=== PATIENT | male | born 1995 | race American Indian/Alaskan Native ===

== ENCOUNTER 2018-12-19 23:40 | Emergency (ER) | payer OTHER ==
[2018-12-19 23:56] VITALS: BP 167/84; PULSE 94; RESP 16; TEMP 98.8; O2SAT 97
[2018-12-20] MEDS ORDERED: Absorbable Gelatin Sponge Size 12-7 TP ONE (00:43)
[2018-12-20] MEDS ORDERED: Tdap Vaccine 0.5 ml Vial (10-64 yrs) IM ONE ×2 (00:45→01:09)
--- NOTE | 2018-12-20 00:46 | ED PDOC ---
HPI: General Adult Time Seen by Provider: 12/20/18 00:44 Chief Complaint (Nursing): Abnormal Skin Integrity Chief Complaint (Provider): left hand injury History Per: Patient (22 y/o male here for injury to left hand index finger that occurred at 3:30pm when he injured tip of finger with rubber mallet. Unsure of tetanus status. Sent by mother for evaluation of injury as it is persistently bleeding.) Past Medical History Reviewed: Historical Data, Nursing Documentation, Vital Signs Vital Signs: Last Vital Signs Temp 98.8 F 12/19/18 23:54 Pulse 94 H 12/19/18 23:54 Resp 16 12/19/18 23:54 BP 167/84 H 12/19/18 23:54 Pulse Ox 97 12/19/18 23:54 - Family History Family History: States: No Known Family Hx - Home Medications Home Medications: Ambulatory Orders Medication Instructions Recorded Cephalexin [Keflex] 500 mg PO TID #15 capsule 12/20/18 - Allergies Allergies/Adverse Reactions: Allergies Allergy/AdvReac Type Severity Reaction Status Date / Time shellfish derived Allergy ANGIOEDEMA Verified 12/19/18 23:54 Review of Systems ROS Statement: Except As Marked, All Systems Reviewed And Found Negative Physical Exam - Reviewed Nursing Documentation Reviewed: Yes Vital Signs Reviewed: Yes - Physical Exam Appears: Positive for: Well, Non-toxic, No Acute Distress Head Exam: Positive for: ATRAUMATIC, NORMAL INSPECTION, NORMOCEPHALIC Skin: Positive for: Normal Color, Warm, DRY Eye Exam: Positive for: EOMI, Normal appearance, PERRL ENT: Positive for: Normal ENT Inspection Neck: Positive for: Normal, Painless ROM Cardiovascular/Chest: Positive for: Regular Rate, Rhythm Respiratory: Positive for: CNT, Normal Breath Sounds Gastrointestinal/Abdominal: Positive for: Normal Exam, Soft Back: Positive for: Normal Inspection Extremity: Positive for: Normal ROM, Other (1.0 cm skin avulsion noted distal tip of left index finger) Neurological/Psych: Positive for: Awake, Alert, Normal Tone - ECG O2 Sat by Pulse Oximetry: 97 - Progress ED Course And Treament: verbal consent prior to procedure gelfoam applied to wound tdap 0.5 ml IM x 1 dose Disposition - Clinical Impression Clinical Impression: Fingertip avulsion - Patient ED Disposition Is Patient to be Admitted: No - Disposition Referrals: Jude Suh MD [Primary Care Provider] - Disposition: Routine/Home Disposition Time: 00:46 Condition: FAIR Additional Instructions: RETURN IN 24-48 HOURS FOR WOUND CHECK Prescriptions: Cephalexin [Keflex] 500 mg PO TID #15 capsule Instructions: Amputation of the Finger or Fingertip (DC)
[2018-12-20] MEDS ORDERED: Absorbable Gelatin Sponge Size 12-7 ONE (00:48)
== END 2018-12-20 01:18 | disposition home or self-care (01) ==
LOC: H.ER 23:40
DX: S61.201A Unspecified open wound of left index finger without damage to nail, initial encounter (principal); W23.0XXA Caught, crushed, jammed, or pinched between moving objects, initial encounter; Y92.89 Other specified places as the place of occurrence of the external cause

== ENCOUNTER 2018-12-21 11:50 | Emergency (ER) | payer SELFPAY ==
[2018-12-21 12:30] VITALS: BP 118/75; PULSE 79; RESP 18; TEMP 97.8; O2SAT 95
--- NOTE | 2018-12-21 13:01 | ED PDOC ---
HPI: General Adult Time Seen by Provider: 12/21/18 12:50 Chief Complaint (Nursing): Wound Check Chief Complaint (Provider): Wound Check History Per: Patient History/Exam Limitations: no limitations Onset/Duration Of Symptoms: Days (2) Current Symptoms Are (Timing): Better Additional Complaint(s): 22 year old male presents to the ED for an evaluation of wound check. Patient was seen here 2 days ago for a finger avulsion that occurred using a rubber mallet. Gel foam was placed and patient was advised to follow up to a ED and provided antibiotics. His tetanus was updated at the time of the last visit. Otherwise, he has no other complains. Past Medical History Reviewed: Historical Data, Nursing Documentation, Vital Signs Vital Signs: Last Vital Signs Temp 97.8 F 12/21/18 12:27 Pulse 79 12/21/18 12:27 Resp 18 12/21/18 12:27 BP 118/75 12/21/18 12:27 Pulse Ox 95 12/21/18 12:27 - Medical History PMH: Asthma - Family History Family History: States: Unknown Family Hx - Immunization History Hx Tetanus Toxoid Vaccination: No Hx Influenza Vaccination: No Hx Pneumococcal Vaccination: No - Home Medications Home Medications: Ambulatory Orders Medication Instructions Recorded Cephalexin [Keflex] 500 mg PO TID #15 capsule 12/20/18 - Allergies Allergies/Adverse Reactions: Allergies Allergy/AdvReac Type Severity Reaction Status Date / Time shellfish derived Allergy ANGIOEDEMA Verified 12/21/18 12:27 Review of Systems ROS Statement: Except As Marked, All Systems Reviewed And Found Negative Constitutional: Negative for: Fever, Chills Musculoskeletal: Negative for: Hand Pain Skin: Positive for: Other (wound check on left index finger) Physical Exam - Reviewed Nursing Documentation Reviewed: Yes Vital Signs Reviewed: Yes - Physical Exam Appears: Positive for: Well, Non-toxic, No Acute Distress Skin: Positive for: Normal Color, Warm, Dry Extremity: Positive for: Normal ROM (no sign of redness, erythema, swelling), Other (On left index finger gel foam intact; wound healing well ). Negative for: Deformity Neurological/Psych: Positive for: Awake, Alert, Normal Tone, Oriented (x3) - ECG O2 Sat by Pulse Oximetry: 95 (RA) Pulse Ox Interpretation: Normal Medical Decision Making Medical Decision Making: Time: 12:22 Plan: Bacitracin and non-adherent dressing placed on the left index finger Upon provider evaluation patient is medically stable, and requires no further treatment in the ED at this time. Patient will be discharged. Counseling was provided and all questions were answered regarding diagnosis and need for follow up with PMD. There is agreement to discharge plan. Return if symptoms persist or worsen. Scribe Attestation: Documented by Edgar King, acting as a scribe for Alexander Leon PA-C. Provider Scribe Attestation: All medical record entries made by the Scribe were at my direction and personally dictated by me. I have reviewed the chart and agree that the record accurately reflects my personal performance of the history, physical exam, medical decision making, and the department course for this patient. I have also personally directed, reviewed, and agree with the discharge instructions and disposition. Disposition - Clinical Impression Clinical Impression: Encounter for wound re-check - Patient ED Disposition Is Patient to be Admitted: No - Disposition Disposition: Routine/Home Disposition Time: 12:55 Condition: STABLE Instructions: Wound Care (DC)
== END 2018-12-21 13:05 | disposition home or self-care (01) ==
LOC: H.ER 11:50
DX: Z48.00 Encounter for change or removal of nonsurgical wound dressing (principal)